=== PATIENT | male | born 1990 | race Caucasian/White ===

== ENCOUNTER 2017-02-24 19:15 | Observation (INO) | payer MEDICAID ==
[~2017-02-24 19:15] MED LIST: ABILIFY5 MG; ABILIFY5 MG PO; ADULT ASPIRIN81 MG PO; ADVIL200 M1 PO; ALBUTEROL17 GM INH; ALBUTEROL2.5 MG/3 M IH; AMBIEN10 MG; AMILORIDE HCL5 MG; AMILORIDE PO; AMOXICILLIN500 M; AMOXICILLIN875 MG PO; ANIMAL SHAPES1 EAC2 PO; ASPIR 8181 MG; ASPIRIN325 M3 PO; ASPIRIN81 MG; ASPIRIN81 MG PO; AUGMENTIN 500-1 EAC2 PO; BACTRIM 400-801 TAB; BACTRIM1 TAB PO; BRILINTA90 M1 PO; BUMEX2 MG PO; CELLCEPT; CELLCEPT PO; CELLCEPT500 MG; CLEOCIN; CLINDAMYCIN PO; COLACE100 MG PO; COLACE50 MG; COMPAZINE10 M; COMPAZINE10 MG PO; COUMADIN3 MG PO; COUMADIN6 MG PO; DELTASONE10 MG; DEMADEX20 MG PO; DILAUDID4 MG PO; DOXYCYCLINE; ELIQUIS5 M1 PO; EPLERENONE25 M1 PO; FIORICET1 TAB PO; FLAGYL500 MG PO; FLONASE16 GM NS; FUROSEMIDE20 MG; HUMALOG100 U/ML SQ; HUMALOG100 UNITS/ SC; HUMULIN 70/30 V10 ML SQ; HUMULIN R100 U/ML SQ; HYDROCODON-ACE1 EA17 PO; HYDROCODONE SYRUP; HYDROCODONE-ACET5 M2 PO; HYDROCODONE/APAP; HYDROCODONE/IBUPROFE; IBUPROFEN IB200 M1 PO; IRON325 M1 PO; K-DUR10 ME1 PO; K-DUR20 MEQ PO; K-TAB ER10 MEQ PO; K-TAB10 MEQ PO; KEFLEX500 M1 PO; LACTULOSE PO; LANTUS100 U/ML SC; LASIX20 MG PO; LASIX40 MG PO; LEVAQUIN500 MG PO; LEVAQUIN750 M1 PO; LEVEMIR FL100 UNIT/2 SC; LEVEMIR100 U/ML; LEVEMIR100 U/ML SC; LEVEMIR100 UNITS/ SC; LEXAPRO20 MG; LISINOPRIL; LISINOPRIL10 MG PO; LISINOPRIL5 MG; LISINOPRIL5 MG PO; LORTAB 10 MG-3473 M1 PO; LORTAB 7.5-3251 EAC1 PO; LOVENOX60 MG/0.6 SQ; MAG-OXIDE400 MG; MAG-OXIDE400 MG PO; MAGGEL600 MG; MAGNESIUM OXIDE; MAGNESIUM400 M1 PO; MAGOX 400400 M1 PO; METHYLPHENIDATE; METOPROLOL; MIDAMOR5 MG; MIRALAX17 G2 PO; MIRALAX255 GM PO; NITROGLYCERIN0.4 M2 SL; NITROGLYCERIN0.4 MG SL; NORCO 5/325 TAB1 TAB PO; OMEPRAZOLE20 M1 PO; OMEPRAZOLE20 M2 PO; OMEPRAZOLE20 MG PO; OMEPRAZOLE40 M1 PO; PERCOCET 5/3251 TAB PO; PERCODAN TABLE1 EACH PO; PHENERGAN W/CO120 ML PO; PHENERGAN25 MG PO; PLAVIX75 MG PO; POTASSIUM CHLO10 ME2 PO; POTASSIUM20 MEQ/13 PO; PRAVACHOL20 MG PO; PREDNISONE; PREDNISONE10 M1 PO; PREDNISONE10 MG PO; PREDNISONE20 MG; PREDNISONE5 MG; PREDNISONE5 MG PO; PRILOSEC20 MG; PRILOSEC20 MG PO; PROGRAF PO; PROGRAF1 M1 PO; PROGRAF1 MG; PROGRAF1 MG PO; PROTONIX40 MG PO; PROVENTIL HFA6.7 G1 IH; RAPAMUNE; RAPAMUNE1 M1 PO; RAPAMUNE1 MG PO; RAPAMUNE2 MG PO; RITALIN; SEROQUEL25 MG; SLO-MAG; SPIRONOLACTONE25 MG PO; STRATTERA40 MG; TOPROL XL25 M1 PO; TORSEMIDE; TORSEMIDE20 M2 PO; TRIMOX500 MG PO; TYLENOL650 MG PO; VALCYTE450 MG; VICODIN 5/500 T1 TAB PO; VITAMIN C250 MG PO; VITAMIN D5000 UNIT PO; WARFARIN SODIUM10 M1 PO; ZESTRIL5 MG PO; ZETIA10 MG; ZITHROMAX250MG Z-PAK PO; ZOFRAN ODT4 MG/UDTAB; ZOFRAN ODT4 MG/UDTAB PO; ZOFRAN4 M1 PO; ZOFRAN4 MG PO; [UNRECOGNIZED DRUG - OTHER]
[2017-02-24] MEDS ORDERED: TOPROL XL25 M1 PO (19:35)
[2017-02-24 19:49] LABS: BASO % 0.3 % (0-2); EOS % 0.1 % (0-7); HCT-HEMATOCRIT 47.2 % (36.0-53.5); HGB-HEMOGLOBIN 16.2 gm/dl (13.5-17.0); IMMATURE GRANULOCYTES ABSOLUTE 0.02 tho/cmm (0-0.03); IMMATURE GRANULOCYTES PERCENT 0.2 % (0-0.3); LYMPH % 10.1 % (20-45); LYMPH ABSOLUTE COUNT 0.9 tho/cmm (0.8-4.5); MCH (MEAN CORPUSCULAR HGB) 25.2 pg (28.0-32.0); MCHC MEAN CORPUSCULAR HGB CONC 34.3 % (32.0-36.0); MCV (MEAN CELL VOLUME) 73.4 fl (82.0-96.0); MEAN PLATELET VOLUME 11.5 cmc (9.4-12.4); MONO % 16.6 % (0-12); MONOCYTE ABSOLUTE COUNT 1.5 tho/cmm (0.0-1.2); NEUTROPHIL ABSOLUTE COUNT 6.5 tho/cmm (1.6-8.0); NEUTROPHIL-AUTOMATED 6.5 tho/cmm (1.6-8.0); NEUTROPHILS % 72.7 % (40-80); PLATELET COUNT 219 tho/cmm (150-450); RED BLOOD COUNT 6.43 mil/cmm (4.40-5.70); RED CELL DISTRIBUTION WIDTH 14.9 % (12.4-16.4); WHITE BLOOD COUNT 8.9 tho/cmm (4.0-10.0)
[2017-02-24 19:55] LABS: INR 1.1 INR (0.9-1.1); PROTHROMBIN TIME 12.4 SECONDS (9.0-13.6)
[2017-02-24 20:15] LABS: ALB/GLOB RATIO 0.9 (0.8-2.0); ALBUMIN 2.8 g/dl (3.5-5.0); ALKALINE PHOSPHATASE 178 U/L (33-138); ALT/SGPT 167 U/L (12-78); BILIRUBIN,TOTAL 1.3 mg/dl (0.0-1.5); BLOOD UREA NITROGEN 14 mg/dl (6-24); CALCIUM 8.3 mg/dl (8.5-10.5); CARBON DIOXIDE-VENOUS 22 mmol/L (22-32); CHLORIDE 105 mmol/l (96-110); CREATININE 0.98 mg/dl (0.60-1.30); GLUCOSE 275 mg/dL (70-110); SODIUM 137 mmol/L (135-145); eGFR VALUE FOR BLACK >90 mL/Min
[2017-02-24 20:16] LABS: ANION GAP 14 mmol/L (0-20); AST/SGOT 211 U/L (10-40)
[2017-02-24 20:17] LABS: POTASSIUM 3.8 mmol/L (3.7-5.1)
--- NOTE | 2017-02-26 00:09 | NUR ---
PT LEFT AMA AT 2337. PT STATED TO RN HIS GIRLFRIEND AND FAMILY ISSUES WERE PREVENTING HIM FROM STAYING. HIS GIRLFRIEND IS CHEATING ON HIM SO HE NEEDED TO LEAVE TO GO PACK UP HIS STUFF. RN EDUCATED PT ABOUT THE BENEFIT OF STAYING, POINTING OUT PT WAS STILL HAVING PAIN, BUT PT CONTINUED TO STATE HE WAS LEAVING. PT STATED "IM LEAVING NO MATTER WHAT, I'LL SIGN WHAT I NEED TO SIGN AND I'LL TALK TO WHO I NEED TO TALK TO, BUT I'M LEAVING". PT HAD HEART CATH, SITE AT TIME OF DC WAS [facility]. RN EDUCATED ABOUT WHAT TO ASSESS FOR, PT STATED HE HAS HAS MANY HEART CATHS AND KNOWS HOW TO TAKE CARE OF IT. RN ALSO NOTED PT WAS TAKING PO BENADRYL FROM HIS BELONINGS UPON RN WALKING INTO THE ROOM. QAR FILLED OUT AND PAPERWORK SIGNED BY PT.
[2017-05-22] MEDS ORDERED: LEVEMIR100 UNITS/ SC (20:12)
[2017-06-17] MEDS ORDERED: PLAVIX75 M1 PO (18:14)
[2017-06-17] MEDS ORDERED: LEVEMIR100 UNITS/ SC (18:15)
[2017-06-17] MEDS ORDERED: OMEPRAZOLE20 M3 PO (18:16)
[2017-06-17] MEDS ORDERED: PREDNISONE10 M1 PO (18:16)
[2017-07-06] MEDS ORDERED: POTASSIUM CHLO10 ME2 PO (14:21)
== END 2017-02-25 23:37 | disposition left against medical advice (07) ==
LOC: EDMED 19:15 → EMR2 22:10 → PCUB 23:25
PROVIDERS: Emergency Medicine; ADMIT Internal Medicine Interventional Cardiology
PROC: 027135Z Dilation of Coronary Artery, Two Arteries with Two Drug-eluting Intraluminal Devices, Percutaneous Approach (ICD-10-PCS; principal; 2017-02-25)
DX: T82.855A Stenosis of coronary artery stent, initial encounter (principal); I48.0 Paroxysmal atrial fibrillation; E78.5 Hyperlipidemia, unspecified; E11.9 Type 2 diabetes mellitus without complications; K21.9 Gastro-esophageal reflux disease without esophagitis; R79.89 Other specified abnormal findings of blood chemistry; F17.210 Nicotine dependence, cigarettes, uncomplicated; Z88.5 Allergy status to narcotic agent; Z88.8 Allergy status to other drugs, medicaments and biological substances; Z79.899 Other long term (current) drug therapy; Z86.718 Personal history of other venous thrombosis and embolism; Z86.73 Personal history of transient ischemic attack (TIA), and cerebral infarction without residual deficits; Z95.0 Presence of cardiac pacemaker; Z98.890 Other specified postprocedural states
CPT/HCPCS: C1725; C1760; C1769; C1874; C9600-LC; C9600-LD; G0378; J0690; J1200; J1644; J1650; J1815; J1940; J2250; J2270; J2405; J2550; J3010; J7030; J7507; J7520; Q9967

== ENCOUNTER 2017-02-26 01:54 | Emergency (ER) | payer MEDICAID ==
[2017-02-26 02:30] LABS: PROTHROMBIN TIME 11.2 SECONDS (9.0-13.6)
[2017-02-26 02:30] LABS: URINE LEUKOCYTE ESTERASE NEGATIVE (NEG); URINE PH 6.5 (5.0-8.0); URINE PROTEIN NEGATIVE (NEG)
[2017-02-26 02:32] LABS: URINE APPEARANCE CLEAR; URINE BILIRUBIN NEGATIVE (NEG); URINE BLOOD NEGATIVE (NEG); URINE COLOR YELLOW; URINE GLUCOSE (UA) LARGE (NEG); URINE KETONE NEGATIVE (NEG); URINE NITRITE NEGATIVE (NEG)
[2017-02-26 02:36] LABS: URINE EPITHELIAL CELLS 0 /[HPF] (0-10); URINE RBC 0 /[HPF] (0-5); URINE WBC 0 /[HPF] (0-5)
[2017-02-26 02:38] LABS: BASO % 0.5 % (0-2); EOS % 0.6 % (0-7); EOSINOPHIL ABSOLUTE COUNT 0.1 tho/cmm (0.0-0.7); HCT-HEMATOCRIT 46.3 % (36.0-53.5); HGB-HEMOGLOBIN 15.3 gm/dl (13.5-17.0); IMMATURE GRANULOCYTES ABSOLUTE 0.02 tho/cmm (0-0.03); IMMATURE GRANULOCYTES PERCENT 0.2 % (0-0.3); LYMPH % 9.2 % (20-45); LYMPH ABSOLUTE COUNT 0.8 tho/cmm (0.8-4.5); MCH (MEAN CORPUSCULAR HGB) 25.3 pg (28.0-32.0); MCV (MEAN CELL VOLUME) 76.7 fl (82.0-96.0); MEAN PLATELET VOLUME 11.5 cmc (9.4-12.4); MONO % 15.6 % (0-12); MONOCYTE ABSOLUTE COUNT 1.4 tho/cmm (0.0-1.2); NEUTROPHIL ABSOLUTE COUNT 6.5 tho/cmm (1.6-8.0); NEUTROPHIL-AUTOMATED 6.5 tho/cmm (1.6-8.0); NEUTROPHILS % 73.9 % (40-80); PLATELET COUNT 208 tho/cmm (150-450); RED BLOOD COUNT 6.04 mil/cmm (4.40-5.70); RED CELL DISTRIBUTION WIDTH 15.4 % (12.4-16.4); WHITE BLOOD COUNT 8.8 tho/cmm (4.0-10.0)
[2017-02-26 02:45] LABS: ALB/GLOB RATIO 0.8 (0.8-2.0); ALBUMIN 2.6 g/dl (3.5-5.0); ALKALINE PHOSPHATASE 202 U/L (33-138); ALT/SGPT 150 U/L (12-78); BILIRUBIN,TOTAL 0.7 mg/dl (0.0-1.5); BLOOD UREA NITROGEN 20 mg/dl (6-24); CALCIUM 8.1 mg/dl (8.5-10.5); CARBON DIOXIDE-VENOUS 23 mmol/L (22-32); CHLORIDE 102 mmol/l (96-110); CREATININE 1.06 mg/dl (0.60-1.30); SODIUM 135 mmol/L (135-145); eGFR VALUE FOR BLACK >90 mL/Min
[2017-02-26 02:56] LABS: ANION GAP 15 mmol/L (0-20); AST/SGOT 178 U/L (10-40); GLUCOSE 430 mg/dL (70-110); POTASSIUM 4.9 mmol/L (3.7-5.1)
[2017-05-22] MEDS ORDERED: LEVEMIR100 UNITS/ SC (20:12)
[2017-06-17] MEDS ORDERED: PLAVIX75 M1 PO (18:14)
[2017-06-17] MEDS ORDERED: LEVEMIR100 UNITS/ SC (18:15)
[2017-06-17] MEDS ORDERED: OMEPRAZOLE20 M3 PO (18:16)
[2017-06-17] MEDS ORDERED: PREDNISONE10 M1 PO (18:16)
[2017-07-06] MEDS ORDERED: POTASSIUM CHLO10 ME2 PO (14:21)
== END 2017-02-26 03:42 ==
LOC: EDMED 01:54
PROVIDERS: Emergency Medicine
DX: R10.31 Right lower quadrant pain (principal); I25.10 Atherosclerotic heart disease of native coronary artery without angina pectoris; E11.65 Type 2 diabetes mellitus with hyperglycemia; F17.200 Nicotine dependence, unspecified, uncomplicated; Z86.73 Personal history of transient ischemic attack (TIA), and cerebral infarction without residual deficits; Z88.5 Allergy status to narcotic agent; Z88.8 Allergy status to other drugs, medicaments and biological substances
CPT/HCPCS: J1200; J1815; J2270; J2405; J7030